=== PATIENT | female | born 1965 | race Caucasian/White ===

== ENCOUNTER 2016-11-03 06:54 | Day surgery (SDC) | payer BC ==
[~2016-11-03] VITALS: Ht 152.4 cm; Wt 58.8 kg
[2016-11-03 08:17] VITALS: Ht 152.4 cm; Wt 58.8 kg
[2016-11-03 08:54] VITALS: BP 110/73; PULSE 63; RESP 20
[2016-11-03 10:02] VITALS: BP 96/65; RESP 20
[2016-11-03] MEDS ORDERED: MIDAZOLAM 1 MG/ML 2 ML INJ ONE ×2 (10:22)
[2016-11-03] MEDS ORDERED: FENTAnyl 50 MCG/ML VIAL ONE (10:22)
--- NOTE | 2016-11-03 12:22 | GILP ---
DATE OF PROCEDURE: 11/03/2016 NAME OF PROCEDURES: 1. Esophagogastroduodenoscopy and biopsy. 2. Colonoscopy and polypectomy. SURGEON: Deion Dallas MD PREOPERATIVE DIAGNOSES: 1. Abdominal pain. 2. Change in the bowel habit. POSTOPERATIVE DIAGNOSES 1. Gastritis with erosions. 2. Gastric biopsy was positive for Helicobacter pylori infection. 3. Colonoscopy all the way to the cecum. 4. Extensive diverticulosis of the sigmoid colon. 5. Flat polyp in the sigmoid colon was removed using the snare and electrocautery. 6. Internal hemorrhoids. INDICATION FOR THE PROCEDURE: Ms. Alexia Sosa is a 50-year-old female patient who had upper ab dominal pain, not responding to therapy. Patient also noticed a change in the bowel habit. The [facility] was scheduled for endoscopy and colonoscopy for further evaluation. The procedures and possible complications are well explained to the patient. The patient understood and consented to the procedures. DESCRIPTION OF PROCEDURE: Under the influence of fentanyl and Versed, the gastroscope was carefully introduced into the esophagus, and under direct vision it was advanced to the stomach and through t he pylorus into the duodenal bulb and descending duodenum. FINDINGS: ESOPHAGUS: The mucosa was normal. STOMACH: The patient had gastritis with erosions and biopsy was positive for Helicobacter pylori in fection. DUODENUM: Normal. The colonoscope was carefully introduced in the rectum, and under direct vision it was advanced all the way to the cecum. FINDINGS: The patient had extensive diverticulosis of the sigmoid colon. She was noted to have had a flat polyp in the sigmoid colon and it was removed using the snare and electrocautery. She had i nternal hemorrhoids. She tolerated the procedures very well and there were complications from the procedures. At the end of the procedure she was awake, with stable vital signs, and she was discharged home to the care of her family. IMPRESSION: 1. Gastritis with erosions and biopsy was positive for Helicobacter pylori infection. 2. Colonoscopy all the way to the cecum. 3. Extensive diverticulosis of the sigmoid colon. 4. Flat polyp in the sigmoid colon was removed using the snare and electrocautery. 5. Internal hemorrhoids. PLAN: 1. Zantac 300 mg p.o. b.i.d. 2. Doxycycline 100 mg p.o. b.i.d. 3. Flagyl 500 mg p.o. b.i.d. 4. Pepto-Bismol 2 tablets p.o. q.i.d. 5. All these 4 medications for 14 days for H. pylori infection. 6. Await histopathology report on polyps. After reviewing the pathology report, the timing for the next colonoscopy will be decided. Dictated By: DEION SHAH/YASMANY Conf#: [id number] DID#: [id number]
== END 2016-11-03 13:42 | disposition home or self-care (01) ==
LOC: GIL 06:54
PROVIDERS: ATTEND Internal Medicine Gastroenterology
DX: Z12.11 Encounter for screening for malignant neoplasm of colon (principal); D12.5 Benign neoplasm of sigmoid colon; K29.60 Other gastritis without bleeding; B96.81 Helicobacter pylori [H. pylori] as the cause of diseases classified elsewhere; K64.8 Other hemorrhoids; K57.90 Diverticulosis of intestine, part unspecified, without perforation or abscess without bleeding
CPT/HCPCS: 43239; 45385; 84703; 87081; 88305; J2250; J3010; Z7610